=== PATIENT | male | born 1950 | race Caucasian/White ===

== ENCOUNTER → 2016-08-08 | Outpatient (CLI) | payer MEDICARE ==
[2016-08-09 14:16] LABS: PSA TOTAL 1.8 ng/mL (0.0-4.0)
== END ==
LOC: M SMT 11:08
PROVIDERS: ATTEND Urology
DX: Z12.5 Encounter for screening for malignant neoplasm of prostate (principal)

== ENCOUNTER → 2017-08-20 | Outpatient (CLI) | payer MEDICARE | LOC: M SMT 08:53 | DX: N40.0 Benign prostatic hyperplasia without lower urinary tract symptoms (principal) | CPT/HCPCS: 76857 ==

== ENCOUNTER → 2017-09-27 | Outpatient (REF) | payer MEDICARE | LOC: M SMT 12:56 | DX: Z01.818 Encounter for other preprocedural examination (principal); N40.0 Benign prostatic hyperplasia without lower urinary tract symptoms; N39.0 Urinary tract infection, site not specified | CPT/HCPCS: 87086 ==

== ENCOUNTER → 2018-09-23 | Outpatient (CLI) | payer MEDICARE | LOC: M SMT 11:23 | PROVIDERS: ATTEND Urology | DX: R97.20 Elevated prostate specific antigen [PSA] (principal) | CPT/HCPCS: 36415; 51798; 84153; G0463 ==

== ENCOUNTER → 2020-12-07 | Outpatient (CLI) | payer MEDICARE | LOC: M PLALAB 13:11 | PROVIDERS: ATTEND Urology | DX: R97.20 Elevated prostate specific antigen [PSA] (principal) ==

== ENCOUNTER → 2020-12-21 | Outpatient (REF) | payer MEDICARE | LOC: M SMT PRO 12:00 | PROVIDERS: ATTEND Urology | DX: C61 Malignant neoplasm of prostate (principal) | CPT/HCPCS: 55700; 76942; 88341; 88342; G0416 ==

== ENCOUNTER → 2021-11-01 | Outpatient (REF) | payer MEDICARE ==
[~2021-11-01] MED LIST: ADVA115A; ASPI-1 PO; ASPI81TA27 PO; ATOR40TA75; CEPH25SS PO; CEPH500C PO; HYDR-3490; MELA3TAB49 PO; META0.52 PO; METO1TAB32; NOXI1TAB PO; TAMS1CAP17
== END ==
LOC: M SMT 12:57
PROVIDERS: ATTEND Urology
DX: C61 Malignant neoplasm of prostate (principal)
CPT/HCPCS: 55700; 76942; G0416

== ENCOUNTER → 2021-12-29 | Outpatient (CLI) | payer MEDICARE ==
[~2021-12-29] MED LIST changes: +FOLI1TAB11 PO
== END ==
LOC: M ONCR 08:28
PROVIDERS: ATTEND General Practice
DX: C61 Malignant neoplasm of prostate (principal); R97.20 Elevated prostate specific antigen [PSA]; N40.0 Benign prostatic hyperplasia without lower urinary tract symptoms; E78.5 Hyperlipidemia, unspecified; I10 Essential (primary) hypertension; J45.909 Unspecified asthma, uncomplicated; K57.90 Diverticulosis of intestine, part unspecified, without perforation or abscess without bleeding; K59.00 Constipation, unspecified; Z79.2 Long term (current) use of antibiotics; Z79.51 Long term (current) use of inhaled steroids; Z79.899 Other long term (current) drug therapy

== ENCOUNTER → 2022-02-07 | Outpatient (CLI) | payer MEDICARE ==
[~2022-02-07] VITALS: Ht 177.8 cm; Wt 86.6 kg
[~2022-02-07] MED LIST changes: +CIPR750T2 PO; +LIDOCAINE 2% MDV 20ML VIAL XX ONE; +LIDOCAINE VISCOUS 2% SOLN 15ML UDC XX ONE; +LORA1TAB4 PO
[2022-02-07 09:19] VITALS: BP 152/72
[2022-02-07 09:50] VITALS: BP 142/77
== END ==
LOC: M ONCR 08:48
PROVIDERS: ATTEND General Practice
DX: C61 Malignant neoplasm of prostate (principal)

== ENCOUNTER 2022-02-16 13:49 | Outpatient (RCR) | payer MEDICARE ==
[~2022-02-16 13:49] MED LIST changes: -LIDOCAINE 2% MDV 20ML VIAL XX ONE; -LIDOCAINE VISCOUS 2% SOLN 15ML UDC XX ONE
[2022-03-01] MEDS ORDERED: DEXA4TA PO (15:21)
== END 2022-02-20 ==
LOC: M ONCR 13:49
PROVIDERS: ATTEND General Practice
DX: C61 Malignant neoplasm of prostate (principal)

== ENCOUNTER 2022-03-03 14:32 | Outpatient (RCR) | payer MEDICARE ==
[~2022-03-03 14:32] MED LIST changes: +DEXA4TA PO
== END 2022-03-22 ==
LOC: M ONCR 14:32
PROVIDERS: ATTEND Radiology Radiation Oncology
DX: C61 Malignant neoplasm of prostate (principal); Z79.899 Other long term (current) drug therapy

== ENCOUNTER → 2022-06-02 | Outpatient (CLI) | payer MEDICARE | LOC: M ONCR 13:41 | PROVIDERS: ATTEND General Practice | DX: C61 Malignant neoplasm of prostate (principal); J30.89 Other allergic rhinitis; Z79.51 Long term (current) use of inhaled steroids; Z79.52 Long term (current) use of systemic steroids; Z79.82 Long term (current) use of aspirin; Z79.899 Other long term (current) drug therapy; Z92.3 Personal history of irradiation | CPT/HCPCS: 84153; G0463 ==

== ENCOUNTER → 2022-11-30 | Outpatient (CLI) | payer MEDICARE ==
[~2022-11-30] MED LIST changes: +LORA1TAB23 PO; -LORA1TAB4 PO
== END ==
LOC: M ONCR 14:02
PROVIDERS: ATTEND General Practice
DX: C61 Malignant neoplasm of prostate (principal); J30.2 Other seasonal allergic rhinitis; Z71.2 Person consulting for explanation of examination or test findings; Z79.899 Other long term (current) drug therapy

== ENCOUNTER → 2023-06-05 | Outpatient (CLI) | payer MEDICARE | LOC: M ONCR 13:50 | PROVIDERS: ATTEND General Practice | DX: C61 Malignant neoplasm of prostate (principal); Z71.2 Person consulting for explanation of examination or test findings; Z92.3 Personal history of irradiation; Z79.82 Long term (current) use of aspirin; Z79.899 Other long term (current) drug therapy; Z79.51 Long term (current) use of inhaled steroids | CPT/HCPCS: 36415; 84153; G0463 ==

== ENCOUNTER → 2024-06-05 | Outpatient (CLI) | payer MEDICARE ==
[~2024-06-05] MED LIST changes: +TAMS1CAP17 PO
== END ==
LOC: M ONCR 14:01
PROVIDERS: ATTEND General Practice
DX: C61 Malignant neoplasm of prostate (principal); R39.12 Poor urinary stream; R19.7 Diarrhea, unspecified; Z92.3 Personal history of irradiation; J30.89 Other allergic rhinitis; Z79.82 Long term (current) use of aspirin; Z79.51 Long term (current) use of inhaled steroids; Z79.899 Other long term (current) drug therapy
CPT/HCPCS: 36415; 84153; G0463